=== PATIENT | female | born 1965 | race Caucasian/White ===

== ENCOUNTER 2017-01-09 16:56 | Emergency (ER) | payer BC ==
[~2017-01-09] VITALS: Ht 170.2 cm; Wt 64.2 kg
[2017-01-09 17:10] VITALS: BP 107/66
== END 2017-01-09 17:50 | disposition home or self-care (01) ==
LOC: ED 17:44
DX: M62.830 Muscle spasm of back (principal)
CPT/HCPCS: 99283